=== PATIENT | female | born 2000 | race Caucasian/White ===

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

== ENCOUNTER → 2018-06-25 | Emergency (ER) | payer BC, OTHER, SELFPAY ==
[~2018-06-25] MED LIST: Acetaminophen 325 MG TAB ONE; Acetaminophen 500 MG TAB ONE; Escitalopram Oxalate 10 mg Tablet PO SCH; traZODone HCl 50 MG TAB ONE
[2018-06-25 17:14] LABS: #Eosinphils 0.1 thou/uL (0.0-0.7); #Lymphocytes 1.6 thou/uL (1.20-3.40); #Monocytes 0.6 thou/uL (0.11-0.59); #Neutrophils 5.4 thou/uL (1.40-6.50); %Basophils 0.5 % (0.0-1.0); %Eosinophils 0.7 % (0.0-10.0); %Lymphocytes 20.9 % (28.0-48.0); %Monocytes 7.6 % (0.0-4.0); %Neutrophils 70.3 % (31.0-61.0); Hemoglobin 15.6 g/dL (12.0-16.0); Mean Corpuscular HGB CONC 33.8 g/dL (32.0-36.0); Mean Corpuscular Hemoglobin 29.4 pg (25.0-35.0); Platelet Count 245 thou/uL (130-400); RBC Distribution Width 11.8 % (11.5-14.5); Red Blood Cell (RBC) Count 5.33 mill/uL (4.00-5.20); White Blood Cell (WBC) Count 7.7 thou/uL (4.8-10.8)
[2018-06-25 17:31] LABS: Acetaminophen Less than 6.0 mcg/mL (10.0-30.0); Alcohol 141 mg/dL (Less than 10); CK (CPK) 29 U/L (29-168); Salicylate Less than 8.0 mg/dL (15.0-30.0)
[2018-06-25 17:35] LABS: ALT (SGPT) 13 U/L (8-55); AST (SGOT) 14 U/L (5-30); Albumin 4.5 g/dL (3.5-5.0); Alkaline Phosphatase 57 U/L (40-150); Anion Gap 15 mmol/L (10-20); BUN (Urea Nitrogen) 5 mg/dL (8.4-21.0); Bilirubin, Total 0.4 mg/dL (0.2-1.2); Calc. Creatinine Clearance 0 mL/min (70-130); Calcium 9.7 mg/dL (7.8-10.44); Carbon Dioxide 18 mmol/L (22-29); Chloride 111 mmol/L (98-107); Estimated GFR-MDRD Greater than 90; Globulin 3.7 g/dL (2.4-3.5); Glucose 97 mg/dL (70-105); Potassium 3.8 mmol/L (3.5-5.1); Protein, Total 8.2 g/dL (6.0-8.3); Sodium 140 mmol/L (136-145)
[2018-06-25 17:38] LABS: Bilirubin Negative (Negative); Blood, Urine Negative (Negative); Clarity CLEAR (Clear); Glucose, Urine (Dipstick) Negative (Negative); Leukocyte Negative (Negative); Nitrite Negative (Negative); Protein, Urine (Dipstick) Negative (Neg-Trace); Specific Gravity, Urine 1.006 (1.002-1.036); Urobilinogen 0.2 mg/dL (0.2-1.0); pH, Urine 6.5 (5.0-9.0)
[2018-06-25 17:42] LABS: Pregnancy Test - Urine (BHCG) Negative (Negative); Pregu Control Background? CLEAR/WHITE (CLR/WHITE); Pregu Control Bar Appear? YES (CONTROL BAR); Specific Gravity 1.006 (1.002-1.036)
[2018-06-25 17:47] LABS: Medtox Reader # READER 1; THC/Cannabinoid Screen Not Detected (NotDetected)
[2018-06-25 17:48] LABS: Amphetamine Not Detected (NotDetected); Barbiturates Screen Not Detected (NotDetected); Benzodiazepine Screen Not Detected (NotDetected); Cocaine Metabolite Screen Not Detected (NotDetected); Medtox Control Line Valid? VALID (VALID); Methadone Not Detected (NotDetected); Methamphetamine Not Detected (NotDetected); Opiate Screen Not Detected (NotDetected); Oxycodone Screen Not Detected (NotDetected); Phencyclidine (PCP) Not Detected (NotDetected); Tricyclic Screen Not Detected (NotDetected)
--- NOTE | 2018-06-25 18:25 | CT ---
CT head noncontrast HISTORY: Altered mental status. FINDINGS: There is no evidence of acute hemorrhage or infarct. The ventricles appear normal in size, shape and position. There is no mass effect or shift of midline structures. IMPRESSION: No acute intracranial abnormalities are demonstrated.
--- NOTE | 2018-06-25 18:32 | CT ---
CT arteriogram with IV contrast and 3-D imaging CT cervical spine noncontrast HISTORY: Neck injury. FINDINGS: There is normal branching of the great vessels at the aortic arch with good contrast flow i nto each carotid and vertebral system. Arteries are patent. No dissection or injury. No hematomas of the neck are apparent. Thyroid gland has normal appearance. Mild atelectasis at each upper lobe lung. Vertebral body heights and alignment of the cervical spine are intact. No acute fracture or dislocati on. IMPRESSION: No significant abnormalities are demonstrated.
== END ==
LOC: ERS 16:25
DX: T71.162A Asphyxiation due to hanging, intentional self-harm, initial encounter (principal); S10.93XA Contusion of unspecified part of neck, initial encounter; F32.9 Major depressive disorder, single episode, unspecified; F17.210 Nicotine dependence, cigarettes, uncomplicated; Z79.899 Other long term (current) drug therapy; X83.8XXA Intentional self-harm by other specified means, initial encounter
CPT/HCPCS: 36415; 70450; 70498; 80053; 80306; 80307; 81003; 81025; 82550; 84443; 85025; 93005; 96360

== ENCOUNTER 2019-05-09 00:46 | Emergency (ER) | payer SELFPAY ==
--- NOTE | 2019-05-09 07:31 | RAD ---
XR Chest 1 View Portable History: Injury Comparison: None. Findings: Lungs are clear. No pneumothorax or effusion. Cardiac silhouette and mediastinal contours a re within normal limits. No acute osseous abnormality. Impression: No acute intrathoracic abnormality.
--- NOTE | 2019-05-09 07:33 | RAD ---
XR Wrist 3 Lt View STANDARD History: Injury Comparison: None. Findings: Nondisplaced transversely oriented distal radius fracture proximal to the physeal scar. The re is also very subtle lucency of the radial styloid. Impression: 1. Nondisplaced transversely oriented distal radial metaphyseal fracture proximal to the physeal scar . 2. Subtle lucency through the radial styloid may reflect a prominent nutrient foramen versus nondispl aced fracture.
== END 2019-05-09 03:06 | disposition home or self-care (01) ==
LOC: ERS 00:46
DX: S59.202A Unspecified physeal fracture of lower end of radius, left arm, initial encounter for closed fracture (principal); R07.9 Chest pain, unspecified; F32.9 Major depressive disorder, single episode, unspecified; F17.210 Nicotine dependence, cigarettes, uncomplicated; V89.2XXA Person injured in unspecified motor-vehicle accident, traffic, initial encounter
CPT/HCPCS: 29125; 71045